=== PATIENT | male | born 1990 | race American Indian/Alaskan Native ===

== ENCOUNTER 2018-09-22 10:09 | Emergency (ER) | payer MEDICAID ==
[2018-09-22] MEDS ORDERED: KEPPRA 1,000 MG/NS 0.75% 100ML 1,000 MG/100 ML BAG IV ONE (10:20)
[2018-09-22] MEDS ORDERED: DECADRON IV ONE (10:20)
[2018-09-22] MEDS ORDERED: BENADRYL IV ONE (10:20)
[2018-09-22 10:54] LABS: Basophils # (Auto) 0.1 K/mm3 (0.0-0.1); Basophils % (Auto) 0.5 % (0.0-1.8); Eosinophils # (Auto) 0.3 K/mm3 (0.0-0.4); Eosinophils % (Auto) 2.1 % (0.0-4.3); Hematocrit 46.7 % (35.5-45.6); Hemoglobin 15.6 gm/dl (11.8-15.2); Lymphocytes % (Auto) 6.8 % (13.4-35.0); Mean Corpuscular HGB Conc 33 % (32-34); Mean Corpuscular Volume 94 fl (84-94); Monocytes % (Auto) 6.8 % (0.0-7.3); Platelet Count 203 K/mm3 (140-440); Red Blood Count 4.99 M/mm3 (3.65-5.03); Red Cell Distribution Width 14.3 % (13.2-15.2)
[2018-09-22] MEDS ORDERED: ATIVAN ONE (11:02)
[2018-09-22] MEDS ORDERED: NACL 0.9% 1000 ML 1,000 ML ONE (11:02)
[2018-09-22] MEDS ORDERED: NACL 0.9% 1000 ML 1,000 ML IV ONE (11:02)
[2018-09-22] MEDS ORDERED: ATIVAN IV ONE (11:02)
--- NOTE | 2018-09-22 11:02 | Emergency Department Report ---
ED Seizure HPI - General Chief Complaint: Seizure Stated Complaint: SEIZURE Time Seen by Provider: 09/22/18 10:12 Source: EMS Mode of arrival: Stretcher Limitations: No Limitations - History of Present Illness Initial Comments: Patient is a 28-year-old [place] male who is presenting status post a seizure. Patient brought in by EMS and was found at his home postictal. Family called emergency services. The patient is more lucid currently and states he does take Keppra been compliant with his medications. Patient denies any head injury fevers chills nausea vomiting or neck stiffness. Patient's only other complaint is some generalized itchiness. Patient has moderate to severe eczema and texture triamcinolone cream. Patient states his itchiness has been slightly worse as of late. Patient denies any shortness of breath chest pain at this ti me. - Related Data Previous Rx's Medication Instructions Recorded Last Taken Type levETIRAcetam [Keppra TAB] 500 mg PO BID #60 tablet 09/22/18 Unknown Rx Allergies Allergy/AdvReac Type Severity Reaction Status Date / Time No Known Allergies Allergy Unverified 09/22/18 11:06 ED Review of Systems ROS: Stated complaint: SEIZURE Other details as noted in HPI Comment: All other systems reviewed and negative ED Past Medical Hx - Social History Smoking Status: Current Every Day Smoker Substance Use Type: Alcohol, Marijuana - Medications Home Medications: Home Medications Medication Instructions Recorded Confirmed Last Taken Type levETIRAcetam [Keppra TAB] 500 mg PO BID #60 tablet 09/22/18 Unknown Rx ED Physical Exam - General Limitations: No Limitations General appearance: alert, in no apparent distress - Head Head exam: Present: atraumatic, normocephalic - Eye Eye exam: Present: normal appearance - ENT ENT exam: Present: mucous membranes moist - Neck Neck exam: Present: normal inspection - Respiratory Respiratory exam: Present: normal lung sounds bilaterally. Absent: respiratory distress, wheezes, rales, rhonchi - Cardiovascular Cardiovascular Exam: Present: regular rate, normal rhythm. Absent: systolic murmur, diastolic murmur, rubs, gallop - GI/Abdominal GI/Abdominal exam: Present: soft, normal bowel sounds. Absent: distended, tenderness, guarding, rebound - Rectal Rectal exam: Present: deferred - Extremities Exam Extremities exam: Present: normal inspection - Back Exam Back exam: Present: normal inspection - Neurological Exam Neurological exam: Present: alert, oriented X3 - Psychiatric Psychiatric exam: Present: normal affect, normal mood - Skin Skin exam: Present: warm, dry, intact, normal color, rash - Expanded Skin Exam Expanded Type of lesion: Present: rash Distribution of rash: generalized Description of rash: Present: erythematous, macular, papular ED Course Vital Signs 09/22/18 10:19 Temperature 97.8 F Pulse Rate 107 H Respiratory 18 Rate Blood Pressure 114/72 - Reevaluation(s) Reevaluation #1: 09/22/18 11:01 Patient was noted to have had a seizure again here in the emergency department. Patient was given Ativan and given a liter of fluid. Patient currently is postictal. He is maintaining airway. Patient's heart rate is 135. ED Medical Decision Making - Lab Data Result diagrams: 09/22/18 10:42 09/22/18 10:42 - Medical Decision Making Patient was monitored here in the emergency department is loaded with a gram of Keppra and given Ativan. Patient currently is completely lucid and is feeling much improved. Patient will be discharged home. Critical care attestation.: If time is entered above; I have spent that time in minutes in the direct care of this critically ill patient, excluding procedure time. ED Disposition Clinical Impression: Breakthrough seizure Eczema Qualifiers: Eczema type: intrinsic Qualified Code(s): L20.84 - Intrinsic (allergic) eczema Disposition: TO HOME OR SELFCARE Is pt being admited?: No Does the pt Need Aspirin: No Condition: Stable Instructions: Recurrent Seizures Adult (ED) Prescriptions: levETIRAcetam [Keppra TAB] 500 mg PO BID #60 tablet Referrals: MADHAVI SMITH MD [Primary Care Provider] - 3-5 Days Time of Disposition: 13:30
[2018-09-22 11:16] LABS: BUN/Creatinine Ratio 6; Blood Urea Nitrogen 6 mg/dL (9-20); Calcium 8.8 mg/dL (8.4-10.2); Hemolysis Index 17
[2018-09-22] MEDS ORDERED: DECADRON ONE (13:13)
[2018-09-22] MEDS ORDERED: BENADRYL ONE (13:14)
[2018-09-22 14:30] VITALS: BP 122/72
== END 2018-09-22 16:00 | disposition home or self-care (01) ==
LOC: ED 10:09
DX: G40.909 Epilepsy, unspecified, not intractable, without status epilepticus (principal); L20.84 Intrinsic (allergic) eczema; F17.200 Nicotine dependence, unspecified, uncomplicated; F12.90 Cannabis use, unspecified, uncomplicated
CPT/HCPCS: 36415; 80048; 85025; 96365; 96375; 99284; J1100; J1200; J1953; J2060; J7030